=== PATIENT | female | born 1970 | race Caucasian/White ===

== ENCOUNTER 2017-11-01 17:18 | Emergency (ER) | payer OTHER ==
[2017-11-01 17:21] VITALS: TEMP 98.3; BMI 24.4
--- NOTE | 2017-11-01 17:57 | ED PDOC ---
Arrival/HPI - General Chief Complaint: Back Pain Time Seen by Provider: 11/01/17 17:33 Historian: Patient - History of Present Illness Narrative History of Present Illness (Text): 11/01/17 17:51 A 47 year old female, who denies any past medical history, presents to the emergency department complaining of pain to left side of head/face, neck and shoulders over the past month. Patient reports her pain has worsened over the past few days and is now radiating to her chest. She notes her pain is exacerbated with movement. Patient took Motrin, with no relief. She notes experiencing mild numbness to bilateral hands only at night. Patient reports feeling stressed but denies any recent trauma, injury, fever, chills, nausea, vomiting, abdominal pain, shortness of breath or any other complaints. PMD: None Time/Duration: Other (1 month) Symptom Course: Worsening Quality: Other Context: Home Past Medical History - Provider Review Nursing Documentation Reviewed: Yes - Psychiatric Hx Substance Use: No - Surgical History Hx Appendectomy: Yes - Anesthesia Hx Anesthesia: Yes Hx Anesthesia Reactions: No Hx Malignant Hyperthermia: No Family/Social History - Physician Review Nursing Documentation Reviewed: Yes Family/Social History: No Known Family HX Smoking Status: n Hx Alcohol Use: No Hx Substance Use: No Allergies/Home Meds Allergies/Adverse Reactions: Allergies No Known Allergies Allergy (Verified 11/01/17 17:38) Review of Systems - Physician Review All systems were reviewed & negative as marked: Yes - Review of Systems Constitutional: absent: Fevers, Night Sweats Respiratory: absent: SOB Cardiovascular: absent: Chest Pain Gastrointestinal: absent: Abdominal Pain, Nausea, Vomiting Musculoskeletal: Other (pain to left side of head/face, neck, shoulders and chest) Neurological: Other (numbness to bilateral hands at night) Psychiatric: Other (stress) Physical Exam Vital Signs Reviewed: Yes Vital Signs Temp Pulse Resp BP Pulse Ox 11/01/17 20:25 88 16 120/75 99 11/01/17 19:28 82 16 112/78 99 11/01/17 17:19 98.3 F 83 18 110/72 97 Temperature: Afebrile Blood Pressure: Normal Pulse: Regular Respiratory Rate: Normal Appearance: Positive for: Well-Appearing, Non-Toxic, Comfortable Pain Distress: None Mental Status: Positive for: Alert and Oriented X 3 - Systems Exam Head: Present: Atraumatic, Normocephalic Pupils: Present: PERRL Extroacular Muscles: Present: EOMI Conjunctiva: Present: Normal Mouth: Present: Moist Mucous Membranes Neck: Present: Normal Range of Motion (reproducible pain with movement), Paraspinal Tenderness (left worse than right, radiating to left trapezius, anterior shoulders and chest ). No: MIDLINE TENDERNESS Respiratory/Chest: Present: Clear to Auscultation, Good Air Exchange. No: Respiratory Distress, Accessory Muscle Use Cardiovascular: Present: Regular Rate and Rhythm, Normal S1, S2. No: Murmurs Abdomen: Present: Normal Bowel Sounds. No: Tenderness, Distention, Peritoneal Signs Back: Present: Normal Inspection. No: Midline Tenderness, Paraspinal Tenderness Upper Extremity: Present: Normal Inspection, NORMAL PULSES. No: Cyanosis, Edema Lower Extremity: Present: Normal Inspection, NORMAL PULSES. No: Edema Neurological: Present: GCS=15, CN II-XII Intact, Speech Normal, Motor Func Grossly Intact (strength intact 5/5), Normal Sensory Function. No: Other ( numbness or paresthesia) Skin: Present: Warm, Dry, Normal Color. No: Rashes Psychiatric: Present: Alert, Oriented x 3, Normal Insight, Normal Concentration Medical Decision Making ED Course and Treatment: 11/01/17 17:51 Impression: A 47 year old female with pain to left side of head/face, neck, shoulders and chest Differential Diagnosis included but are not limited to: Musculoskeletal vs. Radiculopathy Plan: -- Cervical spine CT -- Chest xray -- Valium and Toradol -- Reassess and disposition Progress Notes: 11/01/17 20:20 On re-evaluation, patient feels better and is resting comfortable. Patient has full ROM in neck with no pain, no numbness, no weakness or chest pain. Plan is to discharge patient home and have her follow up outpatient with clinic. Patient in agreement with plan. - RAD Interpretation Radiology Orders: 11/01/17 17:53 CHEST TWO VIEWS (PA/LAT) [RAD] Stat CERVICAL SPINE >18YR W/OBLIQUE [RAD] Stat - Medication Orders Current Medication Orders: Discontinued Medications Diazepam (Valium) 5 mg PO ONCE ONE PRN Reason: Protocol Stop: 11/01/17 17:53 Last Admin: 11/01/17 19:17 Dose: 5 mg Ketorolac Tromethamine (Toradol) 60 mg IM STAT STA Stop: 11/01/17 17:53 Last Admin: 11/01/17 19:18 Dose: 60 mg MAR Pain Assessment Document 11/01/17 19:18 MS (Rec: 11/01/17 19:19 [id number]) Pain Reassessment Is this a pain reassessment? No Sleep Is patient sleeping during reassessment? No Presence of Pain Presence of Pain Yes Pain Scale Used Pain Scale Used Numeric Location Left, Right or Bilateral Left Upper or Lower Upper Pain Location Body Site Back IM Administration Charges Document 11/01/17 19:18 MS (Rec: 11/01/17 19:19 MS [id number]) Injection Site MAR Injection Site Left Deltoid Charges for Administration # of IM Administrations 1 - Scribe Statement The provider has reviewed the documentation as recorded by the Scribe Jessenia Saunders Provider Scribe Attestation: All medical record entries made by the Scribe were at my direction and personally dictated by me. I have reviewed the chart and agree that the record accurately reflects my personal performance of the history, physical exam, medical decision making, and the department course for this patient. I have also personally directed, reviewed, and agree with the discharge instructions and disposition. Disposition/Present on Arrival - Present on Arrival Any Indicators Present on Arrival: No History of DVT/PE: No History of Uncontrolled Diabetes: No Urinary Catheter: No History of Decub. Ulcer: No History Surgical Site Infection Following: None - Disposition Have Diagnosis and Disposition been Completed?: Yes Diagnosis: Neck muscle strain, Headache Disposition: HOME/ ROUTINE Disposition Time: 20:20 Patient Plan: Discharge Condition: IMPROVED Discharge Instructions (ExitCare): Tension Headache, Muscle Strain Additional Instructions: Ms Chavira, thank you for letting us take care of you today. Your provider was Dr. Delgado You were treated for Muscle Neck Strain, Headache. The emergency medical care you received today was directed at your acute symptoms. If you were prescribed any medication, please fill it and take as directed. It may take several days for your symptoms to resolve. Return to the Emergency Department if your symptoms worsen, do not improve, or if you have any other problems. Please contact your doctor or call one of the physicians/clinics you have been referred to that are listed on the Patient Visit Information form that is included in your discharge packet. Bring any paperwork you were given at discharge with you along with any medications you are taking to your follow up visit. Our treatment cannot replace ongoing medical care by a primary care provider (PCP) outside of the emergency department. Thank you for allowing the [facility] team to be part of your care today. If you had an X-Ray or CT scan: A Radiologist will review the ED reading if any change in treatment is needed we will contact you. If you had a blood, urine, or wound culture: It will take several days for the results, if any change in treatment is needed we will contact you. If you had an STI test: It will take 48 hours for the results. Please call after 1 week if you have not heard back. Prescriptions: diaZEpam [Valium] 5 mg PO Q8 #20 tab Ibuprofen [Motrin] 600 mg PO Q6 PRN #30 tab PRN Reason: Pain, Moderate (4-7) [place]errals: [facility] [place] [facility] [place] - Follow up with primary Forms: [employer] (acquired by [employer]) (Uzbek), WORK NOTE
[2017-11-01 21:28] VITALS: RESP 16; O2SAT 99
[2017-11-01 21:29] VITALS: BP 120/75; PULSE 88
--- NOTE | 2017-11-02 10:06 | RAD ---
PROCEDURE: Cervical Spine Radiographs. HISTORY: Pain. COMPARISON: None. FINDINGS: BONES: There is normal alignment of the cervical vertebral bodies. There is straightening of the cervical spine with loss of normal cervical lordosis. Vertebral height is normal. Bone mineralization is normal. There is no acute fracture or traumatic anterior listhesis. The craniocervical junction is normal. The atlantoaxial joint normal. DISC SPACES: Normal. SOFT TISSUES: Normal. No prevertebral soft tissue swelling. OTHER FINDINGS: None. IMPRESSION: No acute fracture or significant degenerative disc disease. Straightening of the cervical spine may be positional or related to muscle spasm.
== END 2017-11-01 20:21 | disposition home or self-care (01) ==
LOC: ED 17:18
DX: S16.1XXA Strain of muscle, fascia and tendon at neck level, initial encounter (principal); X58.XXXA Exposure to other specified factors, initial encounter; Y92.9 Unspecified place or not applicable; R51 Headache
CPT/HCPCS: 71046; 72050; 96372; 99283; J1885

== ENCOUNTER 2018-07-16 18:19 | Emergency (ER) | payer SELFPAY ==
[2018-07-16] MEDS ORDERED: Lidocaine 5% Patch TD STA (18:57)
--- NOTE | 2018-07-16 19:01 | ED PDOC ---
Arrival/HPI - General Chief Complaint: Back Pain Time Seen by Provider: 07/16/18 18:38 - History of Present Illness Narrative History of Present Illness (Text): 07/16/18 18:59 48-year-old female reports 2 week history of atraumatic pain in the lower back, beginning as mild pain but has progressed and feels worse today, worse with movement reports taking Motrin last dose was yesterday with mild improvement of pain. Patient reports she did not take any medication today for pain. Otherwise: (-) paresthesias, (-) weakness, (-) acute bowel or bladder dysfunction, (-) injury, (-) heavy lifting, (-) urinary symptoms, (-) fever. Has had similar pain in the past. Past Medical History - Psychiatric Hx Substance Use: No - Surgical History Hx Appendectomy: Yes - Anesthesia Hx Anesthesia: Yes Hx Anesthesia Reactions: No Hx Malignant Hyperthermia: No Family/Social History Family/Social History: No Known Family HX Smoking Status: Never Smoked Hx Alcohol Use: Yes Frequency of alcohol use: Socially Hx Substance Use: No Allergies/Home Meds Allergies/Adverse Reactions: Allergies No Known Allergies Allergy (Verified 07/16/18 18:38) Review of Systems - Review of Systems Constitutional: absent: Fatigue, Fevers ENT: Sore Throat Respiratory: Cough. absent: SOB Cardiovascular: absent: Chest Pain, Palpitations Gastrointestinal: absent: Abdominal Pain, Nausea, Vomiting Genitourinary Female: absent: Dysuria, Frequency, Hematuria Musculoskeletal: Back Pain. absent: Arthralgias Skin: absent: Rash, Pruritis, Skin Lesions Neurological: absent: Headache, Dizziness Physical Exam Vital Signs Temp Pulse Resp BP Pulse Ox 07/16/18 18:26 98.1 F 79 18 117/76 98 Temperature: Afebrile Blood Pressure: Normal Pulse: Regular Respiratory Rate: Normal Appearance: Positive for: Well-Appearing, Non-Toxic, Comfortable Pain Distress: Moderate Mental Status: Positive for: Alert and Oriented X 3 - Systems Exam Head: Present: Atraumatic, Normocephalic Pupils: Present: PERRL Extroacular Muscles: Present: EOMI Conjunctiva: Present: Normal Mouth: Present: Moist Mucous Membranes Pharnyx: Present: Normal. No: ERYTHEMA, EXUDATE Neck: Present: Normal Range of Motion. No: Meningeal Signs, Lymphadenopathy Respiratory/Chest: Present: Clear to Auscultation, Good Air Exchange. No: Respiratory Distress, Accessory Muscle Use Cardiovascular: Present: Regular Rate and Rhythm, Normal S1, S2. No: Murmurs Abdomen: No: Tenderness, Distention, Peritoneal Signs Back: Present: Normal Inspection, Paraspinal Tenderness (+mild paralumbar tenderness with spasm). No: Midline Tenderness Upper Extremity: Present: Normal Inspection. No: Cyanosis, Edema Lower Extremity: Present: Normal Inspection. No: Edema Neurological: Present: GCS=15, CN II-XII Intact, Speech Normal, Motor Func Grossly Intact, Normal Sensory Function, Gait Normal Skin: Present: Warm, Dry, Normal Color. No: Rashes Psychiatric: Present: Alert, Oriented x 3, Normal Insight, Normal Concentration Medical Decision Making ED Course and Treatment: 07/16/18 19:00 Plan : - Uhcg - toradol IM - flexeril PO - lidoderm patch On reevaluation, patient reports that the pain is improving. On exam, patient remains awake alert and oriented 3 in no acute distress. Sitting comfortably. Patient feels comfortable going home, she is smiling and in good spirits. Advised to follow up with the clinic in 1-2 days without fail. Advised to take medication as prescribed. Return to the emergency room at any time for any new or worsening symptoms. Patient states she fully agrees with and understands discharge instructions. States that she agrees with the plan and disposition. Verbalized and repeated discharge instructions and plan. I have given the patient opportunity to ask any additional questions. - PA / [employer] / Resident Statement MD/DO has reviewed & agrees with the documentation as recorded. Disposition/Present on Arrival - Present on Arrival Any Indicators Present on Arrival: No History of DVT/PE: No History of Uncontrolled Diabetes: No Urinary Catheter: No History of Decub. Ulcer: No History Surgical Site Infection Following: None - Disposition Have Diagnosis and Disposition been Completed?: Yes Diagnosis: Low back pain, URI (upper respiratory infection) Disposition: HOME/ ROUTINE Disposition Time: 20:15 Patient Plan: Discharge Patient Problems: Current Active Problems Problem Status Onset Low back pain Acute URI (upper respiratory infection) Acute Condition: STABLE Discharge Instructions (ExitCare): Low Back Pain (DC), Viral Upper Respiratory Infection, Adult (DC) Print Language: CHINESE Additional Instructions: Thank you for letting us take care of you today. You were treated for low back pain. The emergency medical care you received today was directed at your acute symptoms. If you were prescribed any medication, please fill it and take as dire cted. It may take several days for your symptoms to resolve. Return to the Emergency Department if your symptoms worsen, do not improve, or if you have any other problems. Please contact your doctor in 2 days for re-evaluation and follow up / or call one of the physicians/clinics you have been referred to that are listed on the Patient Visit Information form that is included in your discharge packet. Bring any paperwork you were given at discharge with you along with any medications you are taking to your follow up visit. Our treatment cannot replace ongoing medical care by a primary care provider (PCP) outside of the emergency department. Thank you for allowing the [facility] team to be part of your care today. Prescriptions: Cyclobenzaprine [Cyclobenzaprine HCl] 10 mg PO TID PRN #15 tab PRN Reason: Muscle Spasm Guaifenesin [Adult Tussin Chest Congestion] 200 mg PO Q6H PRN #200 ml PRN Reason: Cough Lidocaine 5% [Lidoderm] 1 ea TD Q12H PRN #10 patch PRN Reason: Pain, Moderate (4-7) Meloxicam [Mobic] 15 mg PO DAILY #20 tab Referrals: [facility] at [facility] – [place]Outside] - Follow up with primary Forms: [employer] (Slovenian), WORK NOTE
[2018-07-16 19:13] VITALS: BP 117/76; PULSE 79; RESP 18; TEMP 98.1; BMI 22.2
[2018-07-16 21:39] VITALS: O2SAT 99
== END 2018-07-16 21:37 | disposition home or self-care (01) ==
LOC: ED 18:19
DX: M54.5 Low back pain (principal); J06.9 Acute upper respiratory infection, unspecified
CPT/HCPCS: 96372; 99283; J1885